=== PATIENT | female | born 1990 | race Caucasian/White ===

== ENCOUNTER 2021-09-08 08:39 | Inpatient (IN) ==
[2021-09-08] MEDS ORDERED: OXYTOCIN 30 UNITS/500 ML BAG IV PRN ×3 (09:14→21:03)
[2021-09-08 09:44] LABS: Hematocrit (blood only) 39.2 % (37-47); Hemoglobin 12.8 g/dL (12.0-16.0); Mean Corpuscular Hemoglobin 30.1 pg (25-34); Mean Corpuscular Hgb Conc 32.7 g/dL (32-36); Mean Corpuscular Volume 92.2 fL (80-100); Mean Platelet Volume 11.5 fL (7.4-10.4); Platelet Count 201 K/uL (130-400); RDW Standard Deviation 47.2 fL (36.4-46.3); Red Blood Count 4.25 M/uL (4.2-5.4); White Blood Count 9.18 K/uL (4.8-10.8)
[2021-09-08] MEDS: LACTATED RINGER'S 1,000 ML IV PRN ×2 (16:04→16:53)
[2021-09-08] MEDS ORDERED: ePHEDrine sulfate 50 MG/ML AMP ONE (16:12)
[2021-09-08] MEDS ORDERED: SODIUM CHLORIDE 0.9% INJ 10 ML VIAL ONE (16:12)
[2021-09-08] MEDS ORDERED: BUPIVACAINE 0.25% 30 ML VIAL ONE ×2 (16:12→17:42)
[2021-09-08] MEDS ORDERED: fentaNYL citrate 100 MCG/2 ML VIAL ONE ×2 (16:12→17:42)
[2021-09-08] MEDS ORDERED: fentaNYL 2MCG/ML ROPIVACAINE 1.25MG/ML 100 ML BAG EPI ONE (16:13)
--- NOTE | 2021-09-08 16:29 | Anesthesiology Consultation ---
Date of Service September 08, 2021 Assessment & Plan (1) Encounter for pre-operative examination: Chart Review Chart Review: Acceptable Risk for Surgery and Patient NOT seen in Pre Admission Testing Consults Requested none History Height/Weight Height: 5 ft 11 in Weight: 77.111 kg Allergies Allergy/AdvReac Type Severity Reaction Status Date / Time Sulfa (Sulfonamide Allergy Unknown Hives - Verified 09/08/21 10:47 Antibiotics) SEE NOTES BELOW oxycodone AdvReac Unknown N/V Verified 09/08/21 10:47 Medications Home Medications Medication Instructions Recorded Confirmed Last Taken prenat.vits,pat,[id number] 1 tab PO DAILY 09/08/21 09/08/21 09/07/21 08:00 Active Medications Generic Name Dose Route Start Last Admin Trade Name Freq PRN Reason Stop Dose Admin Lactated Ringer's 1,000 mls @ 125 mls/hr 09/08/21 09:14 09/08/21 16:04 Lr IV 09/10/21 09:13 999 mls/hr .Q8H PRN Administration L&D Protocol Protocol Past Medical History Medical History (Updated 09/08/21 @ 16:28 by Angela Matias MD) Patient denies significant medical history Pelvic pain WITH PERIODS, REASON FOR UPCOMING PROCEDURE Past Family History Family History Mother Family history of Graves' disease Past Surgical History Surgical History History of repair of ACL RIGHT [place] teeth removed Social History Smoking Status: Never smoker Hx Alcohol Use: Yes Alcohol type: wine Hx Substance Use: No substance use type: does not use Physical Exam Vital Signs Last Vital Signs Temp 36.9 C 09/08/21 16:00 Pulse 77 09/08/21 16:24 Resp 20 09/08/21 16:00 BP 130/85 09/08/21 16:00 Pulse Ox 99 09/08/21 16:24 Testing Laboratory Results 09/08/21 09:25
[2021-09-08] MEDS ORDERED: NALBUPHINE HCL INJ 10 MG/ML AMP IV PRN (17:31)
[2021-09-08] MEDS ORDERED: fentaNYL 2MCG/ML ROPIVACAINE 1.25MG/ML 100 ML BAG EPI PRN (17:31)
[2021-09-08] MEDS ORDERED: NALOXONE HCL 1 MG in SODIUM CHLORIDE 0.9% 1000ML 1,000 ML IV PRN (17:31)
[2021-09-08] MEDS ORDERED: ePHEDrine sulfate 50 MG/ML AMP IV PRN (17:31)
[2021-09-08] MEDS ORDERED: NALOXONE HCL 0.4 MG/1 ML VIAL/CARP IV PRN (17:31)
[2021-09-08] MEDS ORDERED: ONDANSETRON INJ 2 MG/ML 2 ML VIAL IV PRN (17:31)
[2021-09-08] MEDS ORDERED: diphenhydrAMINE 50 MG/ML VIAL IV PRN (17:31)
[2021-09-08] MEDS ORDERED: NURSING L&D Epidural Breakthrough Pain Update SCH (18:15)
[2021-09-08] MEDS ORDERED: HYDROCORTISONE ACETATE 25 MG SUPP PR PRN (21:03)
[2021-09-08] MEDS ORDERED: ACETAMINOPHEN 325 MG TAB PO PRN (21:03)
[2021-09-08] MEDS ORDERED: oxyCODONE/ACETAMINOPHEN 5mg/325mg TAB PO PRN (21:03)
[2021-09-08] MEDS ORDERED: BENZOCAINE 20% AER SPR 82.5 GM CAN EXT PRN (21:03)
[2021-09-08] MEDS ORDERED: SUPERCREAM 0.870% 15 GM JAR EXT PRN (21:03)
[2021-09-08] MEDS ORDERED: ACETAMINOPHEN W/CODEINE #3 1 TAB PO PRN (21:03)
[2021-09-08] MEDS ORDERED: DIPHTHERIA/TETANUS/PERTUSSIS 0.5 ML SYR/VIAL IM ONE (21:03)
--- NOTE | 2021-09-08 21:42 | Anesthesia Procedure Note ---
Date of Service September 08, 2021 Anesthesia Post Epidural Note Vital Signs Vital Signs: Temp Pulse Resp BP Pulse Ox 37.1 C 97 H 20 138/68 98 09/08/21 20:00 09/08/21 21:30 09/08/21 21:30 09/08/21 21:30 09/08/21 21:14 Pain Intensity Abdomen: Pain Intensity: 0 Notes Mental Status: alert / awake / arousable and participated in evaluation Nausea / Vomiting: adequately controlled Pain: adequately controlled Airway Patency, RR, SpO2: stable & adequate BP & HR: stable & adequate Hydration State: stable & adequate Neuraxial Anesthesia: was administered and sensory block is resolving Anesthetic Complications: no major complications apparent and Pt Satisfied with anesthetic care Epidural: Removed without complications and With tip intact
[2021-09-09] MEDS: IBUPROFEN 600 MG TAB PO PRN ×5 (00:05→20:18)
--- NOTE | 2021-09-09 06:19 | Operative Report (OR) ---
DELIVERY NOTE She is a 2, para 1, blood type A positive, group B strep negative. Her due date is 2. She was an infertility patient diagnosed with endometriosis, treated with Lupron, soon a fter discontinuing the Lupron. She had an uneventful course. She requested and had her mem branes stripped several times to go into natural labor to avoid induction. She called this morning, said she was having contractions regularly for several hours. On admission to the hospital, she was about 3 cm dilated, paper thin bulging membranes. She labored throughout the day and walked. Eventu ally contractions got hard. She requested and received epidural anesthesia. She received good pain relief. Soon after that, membranes were ruptured surgically. Fluid was clear. Then, contractions w ere augmented with IV Pitocin. She went to full dilatation and in a very short period of time, pushe d out a live male infant via direct occiput anterior position over an intact perineum. Infant was graham ctioned through the mouth and the nose. Body was delivered without difficulty. Cord was allowed to pulse for 1 minute, then clamped, cut by the father. Cord blood was taken. With IV Pitocin running, the placenta was removed intact. Inspection of the perineum revealed two sulcus lacerations, one at 4 o'clock and then one at 8 o'clock. The one on the left side was deeper. It was repaired with a r unning 2-0 Vicryl out and to beyond the hymenal ring. The one on the right side was also repaired wi th a running 2-0 Vicryl out and to beyond the hymenal ring and part of the labia minora was approxima dillon in this general approximation. Midline, she also had a small midline laceration. This was repai red anatomically. A deep suture was used to approximate the bulbocavernosus muscle. A separate sutu re was used to approximate the perineal body. A running subcuticular skin suture was used to approxi mate the perineal skin edges. Following this, vaginal exam revealed no hematoma formation or sponges in the vagina. All sponges were removed. Uterus contracted nicely. Hemostasis was good. Estimate d blood loss was 200 mL. Job ID: [id number]
[2021-09-09 06:21] LABS: Hematocrit (blood only) 35.3 % (37-47); Hemoglobin 11.5 g/dL (12.0-16.0); Mean Corpuscular Hemoglobin 29.9 pg (25-34); Mean Corpuscular Hgb Conc 32.6 g/dL (32-36); Mean Corpuscular Volume 91.9 fL (80-100); Platelet Count 194 K/uL (130-400); RDW Coefficient of Variation 13.9 % (11.5-14.5); RDW Standard Deviation 46.8 fL (36.4-46.3); Red Blood Count 3.84 M/uL (4.2-5.4); White Blood Count 12.56 K/uL (4.8-10.8)
[2021-09-09] MEDS: DOCUSATE SODIUM 100 MG CAP PO SCH ×2 (08:39→20:18)
[2021-09-09] MEDS: PRENATAL VITAMIN 1 TAB PO SCH (08:40)
--- NOTE | 2021-09-09 12:50 | Obstetrical Progress Note ---
Date of Service September 09, 2021 Assessment & Plan Admission and Anticipated Discharge Date Admission Date: September 08, 2021 Subjective abdomen soft and non tender no calf tenderness ambulating well vaginal bleeding scant hgb 11.5 Results & Data ([facility]) Vital Signs (Past 12 Hours) Vital Signs Temp Pulse Resp BP Pulse Ox 09/09/21 04:15 36.9 C 74 18 107/71 97
[2021-09-09] MEDS ORDERED: bisacodyL 5 MG TABEC PO SCH (20:00)
[2021-09-10] MEDS ORDERED: bisacodyL 10 MG SUPP PR PRN
[2021-09-10] MEDS: IBUPROFEN 600 MG TAB PO PRN ×3 (00:29→10:51)
[2021-09-10 06:36] LABS: Hematocrit (blood only) 35.6 % (37-47); Hemoglobin 11.6 g/dL (12.0-16.0)
[2021-09-10] MEDS: PRENATAL VITAMIN 1 TAB PO SCH (08:35)
[2021-09-10] MEDS: DOCUSATE SODIUM 100 MG CAP PO SCH (08:35)
--- NOTE | 2021-09-10 12:12 | Obstetrical Progress Note ---
Date of Service September 10, 2021 Assessment & Plan Admission and Anticipated Discharge Date Admission Date: September 08, 2021 Subjective abdomen soft and non tender no calf tenderness ambulating well vaginal bleeding scant hgb 11.6 Results & Data ([facility]) Vital Signs (Past 12 Hours) Vital Signs Temp Pulse Resp BP Pulse Ox 09/10/21 07:45 36.7 C 66 18 132/76 100
== END 2021-09-10 12:45 | disposition home or self-care (01) | DRG 807 ==
LOC: OPB 08:39 → 4S1 08:42 → 4S2 23:37

== ENCOUNTER 2023-08-29 22:10 | Inpatient (IN) ==
[2023-08-30] MEDS ORDERED: OXYTOCIN 30 UNITS/NSS 30 UNITS/500 ML BAG IV PRN ×3 (00:19→04:25)
[2023-08-30] MEDS ORDERED: LIDOCAINE 1% LOCAL 20 ML VIAL INFIL PRN (00:19)
[2023-08-30] MEDS ORDERED: ePHEDrine sulfate 50 MG/ML AMP ONE (00:32)
[2023-08-30] MEDS ORDERED: fentaNYL citrate PF 100 MCG/2 ML VIAL ONE (00:32)
[2023-08-30] MEDS ORDERED: fentANYL 2 MCG/ML BUPIVacaine 0.125%-NSS 100ML BAG ONE (00:33)
[2023-08-30] MEDS ORDERED: BUPIVACAINE 0.25% PF 30 ML VIAL ONE (00:33)
[2023-08-30] MEDS ORDERED: SODIUM CHLORIDE 0.9% PF INJ 10 ML VIAL ONE (00:33)
[2023-08-30] MEDS ORDERED: LIDOCAINE 2%/EPINEPHRINE 1:200,000 20 ML PF ONE (00:33)
[2023-08-30] MEDS: LACTATED RINGER'S 1,000 ML IV PRN ×2 (00:35→01:43)
[2023-08-30 01:05] LABS: Hematocrit (blood only) 34.4 % (37.0-47.0); Hemoglobin 11.5 g/dl (12.0-16.0); Mean Corpuscular Hemoglobin 29.7 pg (25.0-34.0); Mean Corpuscular Hgb Conc 33.4 g/dL (32.0-36.0); Mean Corpuscular Volume 88.9 fL (80.0-100.0); Mean Platelet Volume 10.8 fL (9.4-12.4); Platelet Count 209 K/uL (130-400); RDW Coefficient of Variation 12.9 % (11.5-14.5); Red Blood Count 3.87 M/uL (4.20-5.40); White Blood Count 12.71 K/ul (4.8-10.8)
[2023-08-30] MEDS ORDERED: fentANYL 2 MCG/ML BUPIVacaine 0.125%-NSS 100ML BAG EPI PRN (01:05)
[2023-08-30] MEDS ORDERED: BUPIVACAINE 0.25% PF 30 ML VIAL EPI PRN (01:05)
[2023-08-30] MEDS ORDERED: LIDOCAINE 2% MPF LOCAL 5 ML VIAL EPI PRN (01:05)
[2023-08-30] MEDS ORDERED: NALOXONE HCL 0.4 MG/1 ML VIAL/CARP IV PRN (01:05)
[2023-08-30] MEDS ORDERED: fentaNYL citrate PF 100 MCG/2 ML VIAL EPI STA (01:05)
[2023-08-30] MEDS ORDERED: diphenhydrAMINE 50 MG/ML VIAL IV PRN (01:05)
[2023-08-30] MEDS ORDERED: ROPIVACAINE 0.5% PF 5 MG/ML 20 ML VIAL EPI PRN (01:05)
[2023-08-30] MEDS ORDERED: BUPIVACAINE 0.25% PF 30 ML VIAL EPI STA (01:05)
[2023-08-30] MEDS ORDERED: fentaNYL citrate PF 100 MCG/2 ML VIAL EPI PRN (01:05)
[2023-08-30] MEDS ORDERED: LIDOCAINE 2%/EPINEPHRINE 1:200,000 20 ML PF EPI STA (01:05)
[2023-08-30] MEDS ORDERED: NALOXONE HCL 1 MG in SODIUM CHLORIDE 0.9% 1,000 ML IV PRN (01:05)
[2023-08-30] MEDS ORDERED: ePHEDrine sulfate 50 MG/ML AMP IV PRN (01:05)
[2023-08-30] MEDS ORDERED: SODIUM CHLORIDE 0.9% PF INJ 10 ML VIAL EPI PRN (01:05)
[2023-08-30] MEDS ORDERED: SODIUM CHLORIDE 0.9% PF INJ 10 ML VIAL EPI STA (01:05)
[2023-08-30] MEDS ORDERED: NALBUPHINE HCL 5 MG in SYRINGE 0 ML IV PRN (01:05)
--- NOTE | 2023-08-30 01:05 | Anesthesiology Consultation ---
Date of Service August 30, 2023 Assessment & Plan (1) Encounter for pre-operative examination: Chart Review Chart Review: Patient NOT seen in Pre Admission Testing and Acceptable Risk for Labor Epidural Consults Requested none History Height/Weight Height: 5 ft 10 in Weight: 75.296 kg Allergies Allergy/AdvReac Type Severity Reaction Status Date / Time Sulfa (Sulfonamide Allergy Unknown Hives - Verified 09/08/21 10:47 Antibiotics) SEE NOTES BELOW oxycodone AdvReac Unknown N/V Verified 09/08/21 10:47 Medications Home Medications Medication Instructions Recorded Confirmed Last Taken prenat.vits,pat,wrt-edwf-tjvat 1 tab PO DAILY 09/08/21 08/29/23 08/29/23 08:00 Active Medications Generic Name Dose Route Start Last Admin Trade Name Freq PRN Reason Stop Dose Admin Lactated Ringer's 1,000 mls @ 125 mls/hr 08/30/23 00:19 08/30/23 00:35 Lr IV 09/01/23 00:18 999 mls/hr .Q8H PRN Administration L&D Protocol Protocol Past Medical History Medical History (Updated 08/30/23 @ 01:05 by Nahid Ralph DO) Pelvic pain WITH PERIODS, REASON FOR UPCOMING PROCEDURE Patient denies significant medical history Past Family History Family History Mother Family history of Graves' disease Past Surgical History Surgical History [place] teeth removed History of repair of ACL RIGHT Social History Smoking Status: Never smoker Do You Dip or Chew Tobacco: No Hx Alcohol Use: Yes Alcohol type: wine Hx Substance Use: No substance use type: does not use Physical Exam Vital Signs Last Vital Signs Temp 97.5 F L 08/29/23 22:36 Pulse 75 08/30/23 00:41 Resp 18 08/29/23 22:36 BP 132/90 08/30/23 00:41
[2023-08-30] MEDS ORDERED: OXYTOCIN 30 UNITS/NSS 30 UNITS/500 ML BAG IV SCH (03:30)
[2023-08-30] MEDS ORDERED: ACETAMINOPHEN W/CODEINE #3 1 TAB PO PRN (04:25)
[2023-08-30] MEDS ORDERED: oxyCODONE/ACETAMINOPHEN 5mg/325mg TAB PO PRN (04:25)
[2023-08-30] MEDS ORDERED: bisacodyL 10 MG SUPP PR PRN (04:25)
[2023-08-30] MEDS ORDERED: METHYLERGONOVINE MALEATE 0.2 MG/ML AMP IM ONE (04:25)
[2023-08-30] MEDS ORDERED: DIPHTHER/TETAN/PERTUS Vaccine (Tdap, Adol/Adult) 0.5mL IM ONE (04:25)
[2023-08-30] MEDS ORDERED: HYDROCORTISONE ACETATE 25 MG SUPP PR PRN (04:25)
[2023-08-30] MEDS ORDERED: BENZOCAINE 20% SPRY 85 APPLN/85 GM CAN EXT PRN (04:25)
--- NOTE | 2023-08-30 04:31 | Delivery Summary ---
Vaginal Delivery Summary Date of Service August 30, 2023 Vaginal Delivery Summary Patient is a 32-year-old 2 para 2 followed in our office for care and delivery. She was well dated with a first trimester ultrasound. Vaginal beta strep screen was negative. She was admitted in active labor at 37 weeks 4 days gestation. She contracted on her own without stimulation. At 5 to 6 cm she was given epidural for pain control. Pain was well-controlled with epidural. After the epidural membranes were ruptured surgically fluid was clear. Her contractions spaced out. She was then augmented with IV Pitocin. She went to full dilatation and with about 4 pushes pushed out a live female infant. Small laceration of the labia minora on the left side with a small hematoma. This was oversewn with 3-0 Vicryl. Small suture of 3-0 Vicryl was placed at 6:00 on the vaginal opening where there was a small superficial tear. Placenta was removed intact uterus contracted nicely with the use of Pitocin and Methergine. Estimated blood loss was 100 mL.
[2023-08-30] MEDS ORDERED: METHYLERGONOVINE MALEATE 0.2 MG/ML AMP ONE (04:59)
[2023-08-30] MEDS: PRENATAL VITAMIN 1 TAB PO SCH (08:03)
[2023-08-30] MEDS: DOCUSATE SODIUM 100 MG CAP PO SCH ×2 (08:03→20:31)
[2023-08-30] MEDS: IBUPROFEN 600 MG TAB PO PRN ×3 (08:03→16:40)
[2023-08-30] MEDS ORDERED: INFLUENZA VIRUS QUADRIVALENT VACCINE (IIV4) 0.5 ML SYR IM ONE (08:18)
[2023-08-30] MEDS: diphenhydrAMINE Capsule 25 MG CAP PO PRN ×2 (08:50→19:21)
--- NOTE | 2023-08-30 09:59 | Anesthesia Procedure Note ---
Date of Service August 30, 2023 Anesthesia Post Epidural Note Vital Signs Vital Signs: Temp Pulse Resp BP Pulse Ox O2 Del Method 36.5 C 65 18 119/74 96 Room Air 08/30/23 07:30 08/30/23 07:30 08/30/23 07:30 08/30/23 07:30 08/30/23 06:54 08/30/23 07:30 Notes Mental Status: alert / awake / arousable Nausea / Vomiting: adequately controlled Pain: adequately controlled Airway Patency, RR, SpO2: stable & adequate BP & HR: stable & adequate Hydration State: stable & adequate Neuraxial Anesthesia: was administered and sensory block is resolving Anesthetic Complications: no major complications apparent and Pt Satisfied with anesthetic care Epidural: Removed without complications and With tip intact
[2023-08-30] MEDS: ACETAMINOPHEN 325 MG TAB PO PRN (19:21)
[2023-08-31] MEDS: IBUPROFEN 600 MG TAB PO PRN ×2 (00:38→08:40)
[2023-08-31] MEDS: ACETAMINOPHEN 325 MG TAB PO PRN (03:08)
[2023-08-31] MEDS: PRENATAL VITAMIN 1 TAB PO SCH (08:40)
[2023-08-31] MEDS: DOCUSATE SODIUM 100 MG CAP PO SCH (08:40)
[2023-08-31 08:52] LABS: Hematocrit (blood only) 32.6 % (37.0-47.0); Hemoglobin 10.4 g/dl (12.0-16.0); Mean Corpuscular Hemoglobin 29.3 pg (25.0-34.0); Mean Corpuscular Hgb Conc 31.9 g/dL (32.0-36.0); Mean Corpuscular Volume 91.8 fL (80.0-100.0); Mean Platelet Volume 11.2 fL (9.4-12.4); Platelet Count 202 K/uL (130-400); RDW Coefficient of Variation 13.1 % (11.5-14.5); RDW Standard Deviation 43.4 fL (36.4-46.3); Red Blood Count 3.55 M/uL (4.20-5.40); White Blood Count 8.29 K/ul (4.8-10.8)
--- NOTE | 2023-08-31 08:59 | Obstetrical Progress Note ---
Date of Service August 31, 2023 Assessment & Plan Admission and Anticipated Discharge Date Admission Date: August 30, 2023 Subjective abdomen soft and non tender no calf tenderness ambulating well vaginal bleeding scant hgb 10.4 Results & Data Vital Signs (Past 12 Hours) Vital Signs Temp Pulse Resp BP Pulse Ox O2 Del Method 08/31/23 08:17 36.6 C 66 16 117/78 08/31/23 03:10 36.5 C 69 16 105/64 98 Room Air 08/31/23 00:00 36.4 C L 70 18 117/76 98 Room Air
[2023-08-31] MEDS ORDERED: INFLUENZA VIRUS QUADRIVALENT VACCINE (IIV4) 0.5 ML SYR IM ONE (09:00)
[2023-08-31] MEDS ORDERED: DIPHTHER/TETAN/PERTUS Vaccine (Tdap, Adol/Adult) 0.5mL IM ONE (09:01)
[2023-08-31] MEDS ORDERED: bisacodyL 5 MG TABEC PO SCH (20:00)
== END 2023-08-31 11:55 | disposition home or self-care (01) | DRG 807 ==
LOC: OPB 22:10 → 4S1 22:11 → 4E2 08-30 06:56